=== PATIENT | female | born 1955 | race Caucasian/White ===

== ENCOUNTER → 2017-03-02 | Outpatient (CLI) | payer BC ==
[~2017-03-02] MED LIST: ASPI-839 PO; CHOL500045 PO; IBU200 PO; LUTE20CA2 PO; RED600CA19 PO; SIMV-54 PO
--- NOTE | 2017-03-03 14:19 | RADIOLOGY IMAGING REPORT ---
FACILITY: [facility] PATIENT NAME: TODD SILVA : [id number] MR: [id number] V: [id number] EXAM DATE: ORDERING PHYSICIAN: PEYTON DOUGLAS TECHNOLOGIST: Jessica Emmanuel PROCEDURE: MAMMOGRAM SCREENING LEFT UNILATERAL WITH CAD ASSISTED INTERPRETATION AND 3D BREAST TOMOSYNTHESIS. COMPARISON: Prior mammograms dated 01/09/16, 10/31/14, 10/13/13, 07/22/12, 07/24/11 and 07/22/11. INDICATIONS: SCREENING FINDINGS: A small amount of fibroglandular tissue is seen throughout the left breast. The parenchymal pattern has remained stable when allowing for difference in mammographic technique and patient positioning. There is no evidence of malignant appearing mass, malignant appearing calcification or other secondary sign of malignancy in the left breast. DIAGNOSTIC CATEGORY 1--NEGATIVE. RECOMMENDATIONS: ROUTINE MAMMOGRAM AND CLINICAL EVALUATION. IMPRESSION: Bi-RADS 1: No significant abnormality of the left breast is seen. Images were reviewed with R2CAD and 3D breast tomosynthesis. Dictated by: Juana Giraldo M.D. on 03/02/2017 at 10:21 Transcribed by: DIANNA on 03/02/2017 at 15:10 Approved by: Juana Giraldo M.D. on 03/03/2017 at 14:18 [facility]
== END ==
LOC: MAMO 01:18
PROVIDERS: ATTEND Nurse Practitioner Family
DX: Z12.31 Encounter for screening mammogram for malignant neoplasm of breast (principal)
CPT/HCPCS: 77063; 77067

== ENCOUNTER → 2018-04-15 | Outpatient (CLI) | payer BC ==
--- NOTE | 2018-04-21 08:34 | RADIOLOGY IMAGING REPORT ---
FACILITY: [facility] PATIENT NAME: TODD SILVA : [id number] MR: [id number] V: [id number] EXAM DATE: [id number] ORDERING PHYSICIAN: PEYTON DOUGLAS TECHNOLOGIST: Breanna Langley PROCEDURE: MAMMOGRAM SCREENING LEFT UNILATERAL COMPARISON: Prior mammograms. INDICATIONS: SCREENING FINDINGS: Scattered fibroglandular densities are present in the Left breast. A few benign appearing calcifications are scattered in the Left breast. DIAGNOSTIC CATEGORY 1--NEGATIVE. RECOMMENDATIONS: ROUTINE MAMMOGRAM AND CLINICAL EVALUATION IN 1 YR. IMPRESSION: BIRADS 1: Negative. Dictated by: Sarabjit Dow M.D. on 04/15/2018 at 14:00 Transcribed by: FELI on 04/15/2018 at 14:16 Approved by: Juana Giraldo M.D. on 04/21/2018 at 8:33 [facility]
== END ==
LOC: MAMO 01:20
PROVIDERS: ATTEND Nurse Practitioner Family
DX: Z12.31 Encounter for screening mammogram for malignant neoplasm of breast (principal); Z85.3 Personal history of malignant neoplasm of breast
CPT/HCPCS: 77063; 77067

== ENCOUNTER → 2018-04-25 | Outpatient (CLI) | payer BC ==
--- NOTE | 2018-04-25 10:46 | RADIOLOGY IMAGING REPORT ---
FACILITY: [facility] [place] PATIENT NAME: Camila Sheehan : 1955 MR: [id number] V: [id number] EXAM DATE: ORDERING PHYSICIAN: PEYTON DOUGLAS TECHNOLOGIST: Location: [facility] [place] Patient: Camila Sheehan : 1955 Visit/Account:[id number] Date of Sevice: 04/25/2018 DEXA Scan Clinical history: Screening. Comparison: 02/14/2009. LUMBAR SPINE: The bone mineral density (BMD) measured from L1-L4 correlates with a Z-score of -0.9 and a T-score of -1.6 which is osteopenic as defined by the World Health Organization. The cor responding risk of fracture in the lumbar spine is moderately increased compared with a young adult r eference population. This value has decreased by 7.7 % since the prior study. More than 5% change i s considered significant. HIP: Bone mineral density (BMD) measured in the Left Total Hip region correlates with a Z-score of -0.2 an d a T-score of -0.8. The T-score of the femoral neck is -1.7. The lower of the two T-scores is osteopenic as defined by the World Health Organization. The corresponding risk of fracture in the hip is moderately increased compared with a young adult r eference population. This value has decreased by 11.7 % since the prior study. More than 5% change is considered significant. Bone mineral density (BMD) measured in the Left Femoral Neck region measures 0.795 g/cm?. IMPRESSION: 1. Lumbar spine: Osteopenic. There has been significant decrease in the bone mineral density since the previous exam. 2. Left Total Hip: Osteopenic. There has been significant decrease in the bone mineral density sinc e the previous exam. The next DEXA scan of this patient should include the following sites: L1-L4 and Left hip. FRAX? WHO Fracture Risk Assessment Tool link: <http://www.shef.ac.uk/FRAX/tool.jsp?locationValue=9> PLEASE NOTE: 1) The World Health Organization defines low BMD as follows: T-score Normal > -1 Osteopenia < -1 and > -2.5 Osteoporosis < -2.5 without fractures Established osteoporosis < -2.5 with fractures 2) In general, you may wish to consider: Diagnosis Treatment Follow-up DEXA Normal BMD Prevention 2-3 years Osteopenia Prevention/therapy 1-2 years Osteoporosis Therapy Yearly 3) Fracture risk estimated from the T-score is more accurate for vertebral fractures (often spontane ous) than for hip fractures. Report Dictated By: Zach Diaz MD at 04/25/2018 10:39 AM Report E-Signed By: Zach Diaz MD at 04/25/2018 10:41 AM WSN:[email or web address]
== END ==
LOC: RAD 00:42
PROVIDERS: ATTEND Nurse Practitioner Family
DX: M85.89 Other specified disorders of bone density and structure, multiple sites (principal)
CPT/HCPCS: 77080